=== PATIENT | female | born 1945 | race Caucasian/White ===

== ENCOUNTER 2017-09-18 07:08 | Day surgery (SDC) | payer OTHER ==
[2017-09-18] VITALS (7 sets, daily range): BP systolic 110–116; BP diastolic 58–70
[~2017-09-18] VITALS: Ht 157.5 cm; Wt 52.2 kg
[~2017-09-18 07:08] MED LIST: NKM
[2017-09-18] MEDS ORDERED: Phenylephrine 2.5% Op 2ml Soln ONE (07:40)
[2017-09-18] MEDS ORDERED: Flurbiprofen 0.03% Opth Sol 2.5ml ONE (07:40)
[2017-09-18] MEDS ORDERED: Vigamox Opth Soln 3ml ONE (07:40)
[2017-09-18] MEDS ORDERED: Akten 3.5% 1ml Btl ONE (07:41)
[2017-09-18] MEDS ORDERED: Tobradex Opth Susp 2.5ml ONE (07:41)
[2017-09-18] MEDS ORDERED: Tropicamide 1% Opth 15ml Soln ONE (07:41)
--- NOTE | 2017-09-18 07:41 | Pre-Procedure Note/Attestation ---
Pre-Procedure Note/Attestation Complete Prior to Procedure Planned Procedure: right Procedure Narrative: cataract extraction with implant right eye Indications for Procedure Pre-Operative Diagnosis: cataract right eye Attestation I attest that I discussed the nature of the procedure; its benefits; risks and complications; and alternatives (and the risks and benefits of such alternatives ), prior to the procedure, with the patient (or the patient's legal retail service representative). I attest that, if there was a reasonable possibility of needing a blood transfusion, the patient (or the patient's legal retail service representative) was given the [facility] standardized written summary, pursuant to the [place] Blood Safety Act ([place] Health and Safety Code # 1645, as amended). I attest that I re-evaluated the patient just prior to the surgery and that there has been no change in the patient's H&P, except as documented below: EVIE AU Sep 18, 2017 07:41
[2017-09-18] MEDS: Akten 3.5% 1ml Btl RIGHT EYE SCH ×3 (07:42→08:10)
[2017-09-18] MEDS: Vigamox Opth Soln 3ml RIGHT EYE SCH ×3 (07:42→08:10)
[2017-09-18] MEDS: Tobradex Opth Susp 2.5ml RIGHT EYE SCH ×3 (07:42→08:09)
[2017-09-18] MEDS: Tropicamide 1% Opth 15ml Soln RIGHT EYE SCH ×3 (07:42→08:09)
[2017-09-18] MEDS: Phenylephrine 2.5% Op 2ml Soln RIGHT EYE SCH ×3 (07:43→08:10)
[2017-09-18] MEDS: Flurbiprofen 0.03% Opth Sol 2.5ml RIGHT EYE SCH ×3 (07:43→08:10)
[2017-09-18] MEDS ORDERED: Midazolam 2mg/2ml Inj ONE (09:00)
[2017-09-18] MEDS ORDERED: LR 1000ml ONE (09:00)
--- NOTE | 2017-09-18 09:27 | Anethesia Preoperative Eval ---
Anesthesia Pre-op PMH/ROS General Date of Evaluation: Sep 18, 2017 Time of Evaluation: 09:00 - Anesthesiologist: Hi ASA Score: ASA 1 Mallampati Score Class I : Soft palate, uvula, fauces, pillars visible Class II: Soft palate, uvula, fauces visible Class III: Soft palate, base of uvula visible Class IV: Only hard plate visible Mallampati Classification: Class II Surgeon: Don[place]on Diagnosis: right eye cataract Surgical Procedure: right eye cataract removal with implant Anesthesia History: none Family History: no anesthesia problems Allergies: Coded Allergies: No Known Allergies (Unverified , 09/17/17) Medications: see eMAR Past Medical History Cardiovascular: Denies: HTN, CAD, ND, valve dz, arrhythmia, other Pulmonary: Denies: asthma, COPD, CHRIS, other Gastrointestinal/Genitourinary: Reports: other - hx of uterus fibroids, hysterectomy Neurologic/Psychiatric: Denies: dementia, CVA, depression/anxiety, TIA, other HEENT: Reports: cataract (L), cataract (R) Hematology/Immune: Denies: anemia, DVT, bleeding disorder, other Musculoskeletal/Integumentary: Denies: OA, RA, DJD, DDD, edema, other Anesthesia Pre-op Phys. Exam Physician Exam Last Vital Signs Date Time Temp Pulse Resp B/P (MAP) Pulse Ox O2 Delivery O2 Flow Rate FiO2 09/18/17 07:49 97.2 55 18 116/64 99 Room Air Constitutional: NAD Neurologic: CN 2-12 intact Cardiovascular: RRR Respiratory: CTA Gastrointestinal: S/NT/ND Airway Exam Mallampati Score: Class II MO: full ROM: full Teeth: intact - implants permenant Dentures: no upper, no lower Anesthesia Pre-op A/P Labs chart reviewed Studies Pre-op Studies: EKG - NSR Risk Assessment & Plan Assessment: AxOx3 Plan: MAC Status Change Before Surgery: No Pre-Antibiotics Given Within 1 Hr of Incision: Ankita Carter CRNA Sep 18, 2017 09:27
--- NOTE | 2017-09-18 09:28 | Immediate Post-Op Evaluation ---
Immediate Post-Op Evalulation Immediate Post-Op Evalulation Procedure: right eye cataract removal with implant Date of Evaluation: Sep 18, 2017 Time of Evaluation: 09:41 IV Fluids: LR 350 ml Blood Products: 0 Estimated Blood Loss: less than 2 ml Urinary Output: 0 Blood Pressure Systolic: 116 Blood Pressure Diastolic: 63 Pulse Rate: 64 Respiratory Rate: 19 O2 Sat by Pulse Oximetry: 100 Temperature (Fahrenheit): 98.4 Pain Score (1-10): 0 Nausea: No Vomiting: No Complications none Patient Status: awake, reacts, patent Hydration Status: adequate Given Within 1 Hr of Incision: Ankita Carter CRNA Sep 18, 2017 09:28
--- NOTE | 2017-09-18 09:28 | 48 Hour Post Anesthesia Eval ---
Post Anesthesia Evaluation Procedure: right eye cataract removal with implant Date of Evaluation: Sep 18, 2017 Time of Evaluation: 10:01 Blood Pressure Systolic: 120 0: 65 Pulse Rate: 62 Respiratory Rate: 20 Temperature (Fahrenheit): 98.4 O2 Sat by Pulse Oximetry: 100 Airway: patent Nausea: No Vomiting: No Pain Intensity: 0 Hydration Status: adequate Cardiopulmonary Status: WNL Mental Status/LOC: patient returned to baseline Follow-up care needed: patient intructions given Ankita Do CRNA Sep 18, 2017 09:28
--- NOTE | 2017-09-18 09:40 | Brief Operative Note ---
Immediate Post Operative Note Operative Note Pre-op Diagnosis: cataract right eye Procedure: phacoemulsification of cataract with implant right eye Post-op Diagnosis: same as pre-op Surgeon: evie ardon Sleep Medicine Physician: none Anesthesiologist: martha wells crna Anesthesia: MAC Specimen: none Complications: none Condition: stable Fluids: none Estimated Blood Loss: none Drains: none Implant(s) used?: Yes EVIE ARDON Sep 18, 2017 09:40
[2017-09-18] MEDS ORDERED: BSS 500ml btl ONE (12:18)
[2017-09-18] MEDS ORDERED: EPINEPHrine 1mg/1ml Amp ONE (12:18)
[2017-09-18] MEDS ORDERED: Dexamethasone 4mg/ml vial ONE (12:18)
[2017-09-18] MEDS ORDERED: Povidone-Iodine 5% opth solution ONE (12:18)
[2017-09-18] MEDS ORDERED: Lidocaine 1% MPF 10mg/ml 5ml ONE (12:18)
[2017-09-18] MEDS ORDERED: Sodium Hyaluronate 14 mg/ml 0.85ml ONE (12:19)
[2017-09-18] MEDS ORDERED: BSS 15ml BTL ONE (12:19)
--- NOTE | 2017-09-18 15:00 | Operative Note - Dictated ---
DATE OF OPERATION: 09/18/2017 PREOPERATIVE DIAGNOSIS: Cataract, right eye. POSTOPERATIVE DIAGNOSIS: Cataract, right eye. PROCEDURE: Phacoemulsification of cataract, right eye, with placement of posterior chamber intraocular lens. SURGEON: Colin Raphael M.D. MANAGER OF INTERNATIONAL: None. ANESTHESIA: MAC/topical. ANESTHESIOLOGIST: Ankita Do CRNA. INDICATION FOR PROCEDURE: Poor vision, right eye. DESCRIPTION OF FINDINGS: Dense nuclear sclerotic cataract, right eye. DESCRIPTION OF PROCEDURE: The patient received a topical anesthetic block consisting of 3.5% Akten eye drops. The eye was then prepped and draped in the usual manner. A lid speculum was placed. An operating Zeiss microscope was positioned. A temporal corneal groove was made with a fadia blade. A SuperSharp blade made a stab incision at the 12 o'clock position. A 0.1 mL of 1% nonpreserved intracameral lidocaine was injected. Healon was instilled into the anterior chamber and a 2.5/2.8 mm trapezoidal fadia blade was used to complete the temporal corneal wound. A cystotome was used to create an anterior capsular flap. Utrata forceps were used to complete the capsulorrhexis. BSS on a cannula was used to hydrodissect the nucleus. The lens nucleus was phacoemulsified in a phaco-fracture technique. Remaining cortical material was removed with the I/A and the posterior capsule was polished with the I/A on Cap vac. Healon was instilled in the capsular bag and anterior chamber, and an Degroot foldable one-piece posterior chamber intraocular lens, model ZCB00, power 22.0 diopter, serial #[id number] was placed in the injector. The lens was put into the capsular bag. The I/A tip was used to remove the Healon and position the lens. The wound edge was hydrated with BSS and a blunt-tipped cannula. The wound was checked and found to be watertight. The lid speculum was removed, and a drop of TobraDex and Vigamox was placed. A clear plastic shield was taped over the eye. The patient tolerated the procedure well and left the operating room in good condition. Colin Raphael M.D. ([facility] [place]: ROCIO JOB#: [id number] CC: DAVION
== END 2017-09-18 11:10 | disposition home or self-care (01) ==
LOC: SUR 07:08
DX: H25.11 Age-related nuclear cataract, right eye (principal); Z90.710 Acquired absence of both cervix and uterus
CPT/HCPCS: 66984; J0171; J1100; J2250; J7120; V2632; 94003; 94150